=== PATIENT | male | born 1940 | race Caucasian/White ===

== ENCOUNTER 2018-03-21 11:37 | Day surgery (SDC) | payer MEDICARE, OTHER ==
[~2018-03-21] VITALS: Ht 165.1 cm; Wt 63.1 kg
[~2018-03-21 11:37] MED LIST: ALBU90OI61 INH; AMOX500 PO; Aspir 8181 MG PO; BUDE6HFA INH; CYCL10 PO; HYDACE5 PO; LOSA50 PO; LOSHYD100 PO; ONDA4ODT MM; OXYC5 PO; SIMV40 PO; TAMS.4ER PO; [UNRECOGNIZED DRUG - REMARK]
== END 2018-03-21 13:50 | disposition home or self-care (01) ==
LOC: ORSCSDS 11:37
PROVIDERS: Internal Medicine Gastroenterology
PROC: 0DBK8ZX Excision of Ascending Colon, Via Natural or Artificial Opening Endoscopic, Diagnostic (ICD-10-PCS; principal; 2018-03-21 13:00)
PROC: 0DBH8ZX Excision of Cecum, Via Natural or Artificial Opening Endoscopic, Diagnostic (ICD-10-PCS; principal; 2018-03-21 13:00)
PROC: 0DBE8ZX Excision of Large Intestine, Via Natural or Artificial Opening Endoscopic, Diagnostic (ICD-10-PCS; principal; 2018-03-21 13:00)
DX: R19.4 Change in bowel habit (principal); D12.0 Benign neoplasm of cecum; K63.5 Polyp of colon; D37.4 Neoplasm of uncertain behavior of colon; K57.30 Diverticulosis of large intestine without perforation or abscess without bleeding; Z86.010 Personal history of colon polyps; Z87.891 Personal history of nicotine dependence; Z79.82 Long term (current) use of aspirin; Z79.899 Other long term (current) drug therapy
CPT/HCPCS: 88305; J7120

== ENCOUNTER → 2020-04-04 | Outpatient (CLI) | payer MEDICARE, OTHER ==
[2020-04-05 14:08] LABS: ADENOVIRUS F 40/41 Not Detected (Not Detected); ASTROVIRUS Not Detected (Not Detected); C DIFFICILE TOXIN A/B Detected (Not Detected); CRYPTOSPORIDIUM Not Detected (Not Detected); CYCLOSPORA CAYETANENSIS Not Detected (Not Detected); ENTAMOEBA HISTOLYTICA Not Detected (Not Detected); ENTEROAGGREGATIVE E COLI Not Detected (Not Detected); ENTEROPATHOGENIC E COLI Not Detected (Not Detected); ENTEROTOXIGENIC E COLI Not Detected (Not Detected); GIARDIA LAMBLIA Not Detected (Not Detected); NOROVIRUS GI/GII Not Detected (Not Detected); PLESIOMONAS SHIGELLOIDES Not Detected (Not Detected); ROTAVIRUS A Not Detected (Not Detected); SALMONELLA Not Detected (Not Detected); SAPOVIRUS Not Detected (Not Detected); SHIGA-TOXIN-PRODUCING E COLI Not Detected (Not Detected); SHIGELLA/ENTEROINVASIVE E COLI Not Detected (Not Detected); VIBRIO Not Detected (Not Detected); VIBRIO CHOLERAE Not Detected (Not Detected); YERSINIA ENTEROCOLITICA Not Detected (Not Detected)
== END ==
LOC: LAB SHORT 13:59 → LAB SRC 13:59
PROVIDERS: Nurse Practitioner Family
DX: R19.7 Diarrhea, unspecified (principal)
CPT/HCPCS: 0097U; 87324

== ENCOUNTER → 2020-12-02 | Outpatient (CLI) | payer MEDICARE, OTHER ==
[2020-12-02 11:30] LABS: BASOPHILS ABSOLUTE AUTO 0.02 K/mm3 (0.00-0.23); BASOPHILS PERCENT AUTO 0 % (0-2); EOSINOPHILS ABSOLUTE AUTO 0.11 K/mm3 (0.00-0.68); EOSINOPHILS PERCENT AUTO 1 % (0-6); Hematocrit 44.5 % (37.0-53.0); Hemoglobin 15.2 g/dL (13.5-17.5); IMMATURE GRAN ABSOLUTE AUTO 0.02 K/mm3 (0.00-0.10); IMMATURE GRAN PERCENT AUTO 0 % (0-1); LYMPHOCYTES ABSOLUTE AUTO 1.89 K/mm3 (0.84-5.20); LYMPHOCYTES PERCENT AUTO 23 % (21-46); MONOCYTES ABSOLUTE AUTO 0.57 K/mm3 (0.16-1.47); MONOCYTES PERCENT AUTO 7 % (4-13); Mean Corpuscular HGB 32.1 pg (26.0-34.0); Mean Corpuscular HGB Conc 34.2 g/dL (31.5-36.5); Mean Corpuscular Volume 94 fL (80-100); Mean Platelet Volume 9.8 fL (9.1-12.4); NEUTROPHILS ABSOLUTE AUTO 5.56 K/mm3 (1.96-9.15); NEUTROPHILS PERCENT AUTO 68 % (41-73); Platelet Count 169 K/mm3 (150-400); RDW Coefficient Variation 12.8 % (11.7-14.2); RDW Standard Deviation 44.1 fL (35.1-46.3); Red Blood Cell Count 4.73 M/mm3 (4.30-5.90); White Blood Cell Count 8.17 K/mm3 (4.00-11.30)
[2020-12-02 12:04] LABS: Magnesium, Blood 2.1 mg/dL (1.6-2.4)
[2020-12-02 12:31] LABS: Alanine Aminotransfer (ALT/SGP 46 U/L (12-78); Albumin, Blood 3.8 g/dL (3.4-5.0); Alk Phos 85 U/L (50-136); Anion Gap 3 mmol/L (6-16); Aspartate Aminotrans (AST/SGOT 28 U/L (12-37); Bilirubin, Total 0.7 mg/dL (0.1-1.0); Blood Urea Nitrogen 15 mg/dL (8-24); Bun/Creatinine Ratio 15.4 (12.0-20.0); CO2, Blood 27 mmol/L (21-32); Calcium, Blood 9.5 mg/dL (8.5-10.1); Chloride, Blood 108 mmol/L (98-108); Creatinine, Blood 0.97 mg/dL (0.60-1.20); Globulin, Blood 3.9 g/dL (2.2-4.0); Glomerular Filtration Rate >60 (60-); Glucose, Blood 132 mg/dL (70-99); Potassium, Blood 4.3 mmol/L (3.5-5.5); Sodium, Blood 138 mmol/L (136-145); Total Protein, Blood 7.7 g/dL (6.4-8.2)
[2020-12-02 14:45] LABS: C DIFFICILE DNA NEGATIVE (Negative)
== END | disposition home or self-care (01) ==
LOC: LAB 11:26 → LAB SHORT 11:26
PROVIDERS: Physician Assistant
DX: R19.7 Diarrhea, unspecified (principal); Z86.19 Personal history of other infectious and parasitic diseases
CPT/HCPCS: 80053; 83690; 83735; 85025; 87493

== ENCOUNTER 2024-06-05 06:11 | Day surgery (SDC) | payer MEDICARE, OTHER ==
[~2024-06-05] VITALS: Ht 165.1 cm; Wt 58.9 kg
[~2024-06-05 06:11] MED LIST changes: +ALBU90OI; +ANORO ELLIPTA1 EAC1 INH; +Azopt10 ML UD; +FINA5 PO; +LATANOPROST2.5 M3; +MOXI400 PO; +PRED FORTE5 M1 UD; +ROSUVASTATIN CA20 MG PO; +TAMS.4ER; +TIMDOROPSO RIGHTEYE; +TRELEGY ELLIPT1 EAC1 INH
[2024-06-05] MEDS ORDERED: Tranexamic Acid 100 ML IV ONE (06:25)
[2024-06-05] MEDS ORDERED: Ketorolac Tromethamine 30mg Vial ONE (06:33)
[2024-06-05] MEDS ORDERED: Rocuronium Bromide 10 MG/ML 5ML Injection IV ONE (06:33)
[2024-06-05] MEDS ORDERED: propofoL 20 ML IV ONE (06:33)
[2024-06-05] MEDS ORDERED: Metoclopramide HCl 5MG / ML 2ML Vial ONE (06:33)
[2024-06-05] MEDS ORDERED: Sugammadex Sodium 200 MG/2ML SDV (100 MG/ML) ONE (06:33)
[2024-06-05] MEDS ORDERED: FentaNYL Citrate 50 MCG/ML 2 ML Injection ONE ×2 (06:33→10:41)
[2024-06-05] MEDS ORDERED: Ondansetron HCl 2 MG / ML 2ML Vial ONE ×2 (06:33→07:15)
[2024-06-05] MEDS ORDERED: Bupivacaine 0.5% HCl 5 MG/ML 30MLVIAL ONE (06:34)
[2024-06-05] MEDS ORDERED: NS 1,000 ML IV ONE ×2 (06:39)
[2024-06-05] MEDS ORDERED: Tranexamic Acid 100 ML IV SCH (06:40)
[2024-06-05] MEDS ORDERED: CefTRIAXone Sodium 2,000 MG in NS 100 ML IV SCH (06:40)
[2024-06-05] MEDS ORDERED: Bupivacaine 0.5% W/EPI 1:200000 SDV 30 ML Vial ONE (07:04)
--- NOTE | 2024-06-05 07:41 | NUR ---
06/05/24 0741 Tammy Blake TIME OUT PERFORMED AT BEDSIDE AT [address] ONEAL PRIOR TO SUPRACLAVICULAR NERVE BLOCK. NERVE BLOCK STARTED AT 0710 AND ENDED AT 0713. PT PLACED ON 2L O2 VIA N/C. SPO2 AND HR MONITORED THROUGHOUT AND PT TOLERATED PROCEDURE WELL. AFTER PROCEDURE PT REPORTED FEELING NAUSEATED. ZOFRAN 4MG IV X1 GIVEN PER DR ONEAL.
[2024-06-05] MEDS ORDERED: Phenylephrine HCl 100 MCG/ML-NS 10MLSYR (1MG/10ML) ONE (09:00)
[2024-06-05] MEDS ORDERED: Benzocaine Oral Spray 0.5ML UD ONE (10:01)
--- NOTE | 2024-06-05 10:25 | NUR ---
06/05/24 Adeola Schneider CALLED TO GET AN X-RAY FOR PT PER DOCTOR'S ORDERS.
[2024-06-05 10:53] VITALS: BP 148/84
== END 2024-06-05 11:21 | disposition home or self-care (01) ==
LOC: ORSCSDS 06:11
PROVIDERS: Orthopaedic Surgery
PROC: 0RRJ00Z Replacement of Right Shoulder Joint with Reverse Ball and Socket Synthetic Substitute, Open Approach (ICD-10-PCS; principal; 2024-06-05 07:30)
DX: M19.011 Primary osteoarthritis, right shoulder (principal); M75.121 Complete rotator cuff tear or rupture of right shoulder, not specified as traumatic; I10 Essential (primary) hypertension; G47.33 Obstructive sleep apnea (adult) (pediatric); E11.9 Type 2 diabetes mellitus without complications; K21.9 Gastro-esophageal reflux disease without esophagitis; E78.00 Pure hypercholesterolemia, unspecified; J44.89 Other specified chronic obstructive pulmonary disease; N40.0 Benign prostatic hyperplasia without lower urinary tract symptoms; Z79.899 Other long term (current) drug therapy
CPT/HCPCS: 73030; 82947; A9270; C1713; C1776; J0696; J1885; J2371; J2405; J2704; J2765; J3010

== ENCOUNTER 2024-10-20 07:25 | Day surgery (SDC) | payer MEDICARE, OTHER ==
[~2024-10-20] VITALS: Ht 160 cm; Wt 55.2 kg
[2024-10-20] VITALS (11 sets, daily range): BP systolic 117–158; BP diastolic 46–81
[~2024-10-20 07:25] MED LIST changes: +ALBU90OI INH; +LATA.005SO BOTHEYES; -LATANOPROST2.5 M3; -TAMS.4ER
--- NOTE | 2024-10-20 08:04 | NUR ---
Ambulatory in Day SurgeryPre-Op teaching done. Pt verbalizes understanding. History, Chart, Medications and Allergies reviewed before start of procedure.Patient confirms NPO status and agrees with scheduled surgery. Patient reports completing Chlorhexadine shower X2 prior to admission to hospital.Patient States Post-Procedure ride home has been arranged.
[2024-10-20] MEDS ORDERED: Midazolam HCl 1MG / ML 2ML Vial ONE (08:20)
[2024-10-20] MEDS ORDERED: FentaNYL Citrate 50 MCG/ML 2 ML Injection ONE (08:20)
[2024-10-20] MEDS ORDERED: Rocuronium Bromide 10 MG/ML 5ML Injection IV ONE (08:21)
[2024-10-20] MEDS ORDERED: Bupivacaine 0.5% W/EPI 1:200000 SDV 30 ML Vial ONE (08:21)
[2024-10-20] MEDS ORDERED: METF500 PO (08:30)
[2024-10-20] MEDS ORDERED: Dexamethasone Sod Phos 10 MG/ML 1ML VIAL ONE (10:04)
[2024-10-20] MEDS ORDERED: Ondansetron HCl 2 MG / ML 2ML Vial ONE (10:04)
[2024-10-20] MEDS ORDERED: Ketorolac Tromethamine 30mg Vial ONE (10:04)
[2024-10-20] MEDS ORDERED: Sugammadex Sodium 200 MG/2ML SDV (100 MG/ML) ONE (10:05)
[2024-10-20] MEDS ORDERED: FentaNYL Citrate 50 MCG/ML 2 ML Injection IV PRN ×2 (10:15)
[2024-10-20] MEDS ORDERED: HYDROmorphone HCl/Pf 1MG SYR IV PRN ×2 (10:15)
[2024-10-20] MEDS ORDERED: Ondansetron HCl 2 MG / ML 2ML Vial IV PRN (10:15)
--- NOTE | 2024-10-20 11:12 | NUR ---
RECEIVED REPORT FROM KIMBERLY RUIZ. PT RESTING QUIETLY IN BED WITH EYES CLOSED. OPENS EYES TO VERBAL STIMULI. VSS. WHEN ASKED QUESTIONS HE SHAKES HIS HEAD BUT DOES NOT VERBALLY ANSWER QUESTIONS AT THIS TIME. DRESSING CLEAN DRY AND INTACT. WILL CONTINUE TO MONITOR PT.
--- NOTE | 2024-10-20 11:55 | NUR ---
Discharge instructions reviewed with patient. Patient verbalizes understanding. Copy given to patient to take home. HEARING AIDS AND GLASSES RETURNED TO PT. Dressing to procedure site clean, dry, intact with no visible drainage, swelling, erythema or bruising noted. PT REPORTS NO PAIN OR NAUSEA. SPOUSE AT BEDSIDE. PT REQUESTING TO GET DRESSED AND GO HOME. VSS. Discharged via wheelchair to private car for ride home WITH SPOUSE.
== END 2024-10-20 23:00 | disposition home or self-care (01) ==
LOC: ORSCMMR 07:25 → ORD 08:00 → ORSCMMR 09:00 → ORD 10:30 → ORSCMMR 14:05
PROVIDERS: Surgery
PROC: 0YU54JZ Supplement Right Inguinal Region with Synthetic Substitute, Percutaneous Endoscopic Approach (ICD-10-PCS; principal; 2024-10-20 09:00)
PROC: 3E0T3BZ Introduction of Anesthetic Agent into Peripheral Nerves and Plexi, Percutaneous Approach (ICD-10-PCS; principal; 2024-10-20 09:00)
PROC: 8E0W4CZ Robotic Assisted Procedure of Trunk Region, Percutaneous Endoscopic Approach (ICD-10-PCS; principal; 2024-10-20 09:00)
DX: K40.90 Unilateral inguinal hernia, without obstruction or gangrene, not specified as recurrent (principal); I10 Essential (primary) hypertension; E11.9 Type 2 diabetes mellitus without complications; J44.89 Other specified chronic obstructive pulmonary disease; J44.9 Chronic obstructive pulmonary disease, unspecified; Z79.84 Long term (current) use of oral hypoglycemic drugs; Z79.899 Other long term (current) drug therapy
CPT/HCPCS: 82947; C1781; J1100; J1885; J2250; J2405; J2704; J3010; J7120

== ENCOUNTER → 2024-12-09 | Outpatient (CLI) | payer MEDICARE, OTHER ==
[~2024-12-09] MED LIST changes: +METF500 PO
[2024-12-09 13:25] LABS: BASOPHILS ABSOLUTE AUTO 0.02 K/mm3 (0.00-0.23); BASOPHILS PERCENT AUTO 0 % (0-2); EOSINOPHILS ABSOLUTE AUTO 0.08 K/mm3 (0.00-0.68); EOSINOPHILS PERCENT AUTO 1 % (0-6); Hematocrit 42.2 % (37.0-53.0); Hemoglobin 14.3 g/dL (13.5-17.5); IMMATURE GRAN ABSOLUTE AUTO 0.06 K/mm3 (0.00-0.10); IMMATURE GRAN PERCENT AUTO 1 % (0-1); LYMPHOCYTES ABSOLUTE AUTO 2.62 K/mm3 (0.84-5.20); LYMPHOCYTES PERCENT AUTO 28 % (21-46); MONOCYTES ABSOLUTE AUTO 0.63 K/mm3 (0.16-1.47); MONOCYTES PERCENT AUTO 7 % (4-13); Mean Corpuscular HGB Conc 33.9 g/dL (31.5-36.5); Mean Corpuscular Volume 94 fL (80-100); NEUTROPHILS ABSOLUTE AUTO 6.13 K/mm3 (1.96-9.15); NEUTROPHILS PERCENT AUTO 64 % (41-73); NRBC ABSOLUTE 0.00 K/mm3 (0.00-0.02); NRBC Auto 0.0 /100 WBC (0.0-0.2); Platelet Count 205 K/mm3 (150-400); RDW Coefficient Variation 13.2 % (11.7-14.2); RDW Standard Deviation 45.6 fL (35.1-46.3)
[2024-12-09 13:38] LABS: Alanine Aminotransfer (ALT/SGP 51.0 U/L (12-78); Albumin, Blood 3.0 g/dL (3.4-5.0); Albumin/Globulin Ratio 0.8 (0.8-1.8); Anion Gap 11.0 mmol/L (3-11); Aspartate Aminotrans (AST/SGOT 33.0 U/L (12-37); Bilirubin, Total 0.5 mg/dL (0.1-1.0); Blood Urea Nitrogen 17.0 mg/dL (8-24); CO2, Blood 30.0 mmol/L (21-32); Calcium, Blood 9.4 mg/dL (8.5-10.1); Chloride, Blood 99.0 mmol/L (98-108); Creatinine, Blood 0.88 mg/dL (0.60-1.20); Globulin, Blood 3.7 g/dL (2.2-4.0); Glucose, Blood 179.0 mg/dL (70-99); Potassium, Blood 3.8 mmol/L (3.5-5.5); Sodium, Blood 136.0 mmol/L (136-145); Total Protein, Blood 6.7 g/dL (6.4-8.2)
== END ==
LOC: LAB 13:22 → LAB SHORT 13:22
DX: R06.02 Shortness of breath (principal)
CPT/HCPCS: 80053; 84484; 85025